=== PATIENT | female | born 1965 | race American Indian/Alaskan Native ===

== ENCOUNTER 2017-11-07 17:21 | Emergency (ER) | payer BC ==
[2017-11-07] MEDS ORDERED: NACL 0.9% 1000 ML 1,000 ML IV ONE (17:52)
--- NOTE | 2017-11-07 17:58 | Emergency Department Report ---
ED General Adult HPI - General Chief complaint: Dyspnea/Respdistress Stated complaint: FALL/HIP PAIN Time Seen by Provider: 11/07/17 17:50 Source: patient Mode of arrival: Wheelchair Limitations: Physical Limitation - History of Present Illness Initial comments: 52-year-old fell off the toilet and had a to extricated, here for eval hip pain , sob w/ hx of diarrhea after slip and fall and prolonged extrication after fall here morbidly obese with according to her increasing weight gain over the last month, here for eval fall, bilat hip pain, int. sob and cp, "i thik i have dm", and wt gain x one mo. patient denies black or bloody stool no fever no recent travel. Intermittent worsening shortness of breath intermittent chest pain with weight gain or 1 week to 1 month patient is not entirely sure. When she fell off the toilet she did not hit her head or neck but she is having mid to lower back pain and bilateral hip pain and pelvis pain she was unable to get up at the scene 911 was called there was prolonged extrication they did have to cut out half the bathroom. -: Sudden, hour(s), days(s), week(s) Location: back, abdomen, pelvis Radiation: non-radiation Quality: sharp Consistency: intermittent Worsens with: movement Associated Symptoms: chest pain, shortness of breath, weakness - Related Data Allergies Allergy/AdvReac Type Severity Reaction Status Date / Time No Known Allergies Allergy Unverified 11/07/17 17:34 ED Review of Systems ROS: Stated complaint: FALL/HIP PAIN Other details as noted in HPI Comment: All other systems reviewed and negative Constitutional: weakness. denies: diaphoresis, fever Eyes: denies: eye discharge ENT: denies: dental pain, hearing loss, epistaxis Respiratory: orthopnea, shortness of breath, SOB with exertion. denies: stridor Cardiovascular: chest pain, dyspnea on exertion, orthopnea, edema. denies: palpitations, syncope Gastrointestinal: diarrhea. denies: nausea, vomiting, constipation, hematemesis , melena, hematochezia Genitourinary: denies: urgency, dysuria, frequency, hematuria, discharge Musculoskeletal: arthralgia, myalgia Neurological: denies: headache, numbness, paresthesias, confusion, abnormal gait , vertigo Psychiatric: denies: auditory hallucinations, visual hallucinations, homicidal thoughts, suicidal thoughts Hematological/Lymphatic: denies: easy bruising, swollen glands ED Past Medical Hx - Past Medical History Previous Medical History?: Yes Hx Diabetes: Yes Hx Arthritis: Yes - Surgical History Past Surgical History?: No - Social History Smoking Status: Current Every Day Smoker Substance Use Type: Alcohol ED Physical Exam - General Limitations: Physical Limitation General appearance: alert, anxious - Head Head exam: Present: atraumatic, normocephalic - Eye Eye exam: Present: normal appearance, PERRL, EOMI - ENT ENT exam: Present: normal exam, normal orophraynx, other (no stridor no drooling no airway compromise) - Neck Neck exam: Present: normal inspection. Absent: tenderness, meningismus - Respiratory Respiratory exam: Present: rales, rhonchi. Absent: stridor, chest wall tenderness, accessory muscle use, prolonged expiratory - Cardiovascular Cardiovascular Exam: Present: tachycardia - GI/Abdominal GI/Abdominal exam: Present: tenderness. Absent: guarding, rebound, rigid, mass , bruit, pulsatile mass - Extremities Exam Extremities exam: Present: pedal edema, calf tenderness - Back Exam Back exam: Present: muscle spasm, paraspinal tenderness - Neurological Exam Neurological exam: Present: alert, oriented X3, CN II-XII intact. Absent: motor sensory deficit - Skin Skin exam: Absent: erythema, vesicles, petechiae, pallor, abrasion, ecchymosis ED Course Vital Signs 11/07/17 11/07/17 11/07/17 17:27 17:30 17:34 Temperature 98.0 F Pulse Rate 99 H 101 H Respiratory 14 18 Rate Blood Pressure 152/104 158/91 152/104 Blood Pressure 158/91 [Left] O2 Sat by Pulse 92 99 91 Oximetry 11/07/17 11/07/17 11/07/17 17:41 17:45 18:00 Temperature Pulse Rate 99 H 101 H Respiratory 14 15 14 Rate Blood Pressure 158/91 163/97 Blood Pressure [Left] O2 Sat by Pulse 99 94 94 Oximetry 11/07/17 11/07/17 11/07/17 18:15 18:30 19:22 Temperature Pulse Rate 99 H 103 H Respiratory 13 13 Rate Blood Pressure 163/97 178/108 178/108 Blood Pressure [Left] O2 Sat by Pulse 94 92 96 Oximetry 11/07/17 11/07/17 19:30 19:38 Temperature 98 F Pulse Rate Respiratory Rate Blood Pressure 193/109 Blood Pressure [Left] O2 Sat by Pulse 95 Oximetry - Reevaluation(s) Reevaluation #1: 11/07/17 20:33 Patient placed in room CT and plain films ordered patient was too large to complete the CT she was also large to get and lateral views ED Medical Decision Making - Lab Data Result diagrams: 11/07/17 17:51 11/07/17 17:51 - EKG Data Rate: tachycardia - EKG Data Interpretation: nonspecific ST-T wave abdi - Radiology Data Radiology results: pending - Medical Decision Making Given the nature of the symptoms patient did have complete workup ordered she did have an elevated BNP as well as an elevated d-dimer with normal troponin and nondiagnostic EKG. Given the prolonged extrication low back and abdominal pain and pelvic pain with elevated d-dimer and shortness of breath and chest pain patient will need CTA as well as clearance for trauma including spine and abdomen and pelvis. Given the weight constraints of the scanner at this facility and the concern for trauma as well as the chest pain shortness of breath and elevated d-dimer elevated BNP we did feel the higher level of care for discussed the case with [facility] and trauma service as well as further evaluation of chest pain shortness of breath. The [facility] facility is able to handle the patient and trauma service was made aware the patient and they will accept the transfer family is consenting to transfer.for further eval of c/o as above and dr paz has accepted at [facility] for higher level of care. Critical care attestation.: If time is entered above; I have spent that time in minutes in the direct care of this critically ill patient, excluding procedure time. ED Disposition Clinical Impression: Fall, Chest pain, Elevated d-dimer, Back pain, Pain in pelvis Disposition: DC/TX-70 ANOTHER TYPE HLTHCARE Is pt being admited?: No Condition: Stable Instructions: Chest Pain (ED) Time of Disposition: 20:39
[2017-11-07 18:04] LABS: Basophils % (Auto) 0.4 % (0.0-1.8); Eosinophils # (Auto) 0.1 K/mm3 (0.0-0.4); Eosinophils % (Auto) 1.9 % (0.0-4.3); Hematocrit 48.1 % (30.3-42.9); Hemoglobin 15.3 gm/dl (10.1-14.3); Lymphocytes # (Auto) 0.3 K/mm3 (1.2-5.4); Lymphocytes % (Auto) 4.4 % (13.4-35.0); Mean Corpuscular HGB Conc 32 % (30-34); Mean Corpuscular Hemoglobin 30 pg (28-32); Mean Corpuscular Volume 95 fl (79-97); Monocytes # (Auto) 0.4 K/mm3 (0.0-0.8); Monocytes % (Auto) 5.6 % (0.0-7.3); Platelet Count 281 K/mm3 (140-440); Red Blood Count 5.08 M/mm3 (3.65-5.03); Red Cell Distribution Width 15.8 % (13.2-15.2)
[2017-11-07 18:21] LABS: Calcium 8.1 mg/dL (8.4-10.2)
--- NOTE | 2017-11-07 20:25 | XRay Report ---
FINAL REPORT PROCEDURE: XR CHEST 1V AP TECHNIQUE: Chest radiograph anteroposterior view. CPT 75792 HISTORY: sob COMPARISON: No prior studies are available for comparison. FINDINGS: Heart: Cardiac size is upper limit of normal.. Mediastinum/Vessels: Normal. Lungs/Pleural space: An irregular patchy density is noted in the right lower lung. Left lung and bilateral pleural spaces are clear.. Bony thorax: No acute osseous abnormality. Life support devices: None. IMPRESSION: A patchy density in the right lower lung may represent atelectatic versus infiltrative changes. A two view chest study is recommended whenever the patient's condition permits..
[2017-11-07] MEDS ORDERED: NITROSTAT SL ONE (20:27)
[2017-11-07] MEDS ORDERED: NITRO-BID 2% TP ONE (20:27)
[2017-11-07] MEDS ORDERED: LASIX IV ONE (20:27)
--- NOTE | 2017-11-07 21:17 | XRay Report ---
FINAL REPORT PROCEDURE: XR PELVIS 1-2V TECHNIQUE: Pelvis radiograph, AP view. CPT 40186 HISTORY: fall COMPARISON: No prior studies are available for comparison. FINDINGS: An acute fracture is not identified. Mild degree osteophyte formation is noted involving left hip joint. Right hip joint is unremarkable. There are no radiopaque foreign bodies. IMPRESSION: No acute fracture.
--- NOTE | 2017-11-07 21:19 | XRay Report ---
FINAL REPORT PROCEDURE: XR SPINE 1V SPECIFY TECHNIQUE: A single AP view of lumbar spine was obtained HISTORY: fall; BACK PAIN COMPARISON: None FINDINGS: Vertebral alignment and height are within normal limits as visualized on this frontal view. Narrowing of intervertebral disc spaces noted at L4-5. Transitional vertebra is noted at the lumbosacral junction. Marginal osteophyte formation is noted involving the lumbar levels. IMPRESSION: No obvious acute fracture as visualized on this single view. Degenerative disc disease at L4-5.
--- NOTE | 2017-11-07 21:22 | XRay Report ---
FINAL REPORT PROCEDURE: XR SPINE 1V SPECIFY TECHNIQUE: A single AP view of thoracic spine was obtained. HISTORY: fall; BACK PAIN COMPARISON: No prior studies are available for comparison. FINDINGS: Vertebral height and alignment are within normal limits as visualized on this single frontal view. Marginal osteophyte formation is noted at multiple lower thoracic disc levels. There appears to be widening of the superior mediastinum. IMPRESSION: No obvious acute fracture as visualized on this single frontal view. Widening of the superior mediastinum is noted. CTA of the chest is recommended to rule out any aortic injury.
[2017-11-07] MEDS ORDERED: ZOFRAN IV ONE (21:47)
[2017-11-07] MEDS ORDERED: MORPHINE IV ONE (21:47)
[2017-11-08 01:42] VITALS: BP 147/91
== END 2017-11-08 01:44 | disposition other institution (70) ==
LOC: ED 17:21
DX: R07.89 Other chest pain (principal); M54.89 Other dorsalgia; R10.2 Pelvic and perineal pain; R79.1 Abnormal coagulation profile; E11.9 Type 2 diabetes mellitus without complications; M19.90 Unspecified osteoarthritis, unspecified site; F17.200 Nicotine dependence, unspecified, uncomplicated; W01.0XXA Fall on same level from slipping, tripping and stumbling without subsequent striking against object, initial encounter; Y93.89 Activity, other specified; Y92.89 Other specified places as the place of occurrence of the external cause; Y99.8 Other external cause status
CPT/HCPCS: 36415; 71045; 72020; 72170; 80048; 83880; 84484; 85025; 85379; 93005; 93010; 96361; 96374; 96375; 99285; J1940; J2270; J2405; J7030

== ENCOUNTER 2017-12-23 18:34 | Emergency (ER) | payer SELFPAY ==
--- NOTE | 2017-12-23 19:09 | Emergency Department Report ---
ED CPR HPI - General Stated Complaint: CARDIAC ARREST Time Seen by Provider: 12/23/17 19:05 - History of Present Illness Initial Comments: Since a 52 year old female that was found by paramedics with no signs of life. Paramedics and fortunately that the patient was very cyanotic and look like could potentially be a field pronouncement. However the stated that the patient was a live 15 minutes prior. Therefore paramedics initiated CPR and transfer report of the patient for further evaluation. On their initial arrival the patient was found in asystole. She did not respond to rounds of epinephrine. She remained in asystole throughout. She had approximately 25 minutes of resuscitation by the time of my encounter. She presented in asystole. Therefore further resuscitative efforts were deemed futile; she was pronounced DOA. Complaint: found unresponsive -: minute(s) Place: home Bystander CPR Performed: No Shock Advised: No Initial Findings in the Field: systole (asystole) ROSC in the Field: No - Related Data Allergies Allergy/AdvReac Type Severity Reaction Status Date / Time No Known Allergies Allergy Unverified 11/07/17 17:34 ED Review of Systems ROS: Stated complaint: CARDIAC ARREST Other details as noted in HPI Comment: Unobtainable due to pts medical conditions ED Past Medical Hx - Past Medical History Hx Diabetes: Yes Hx Arthritis: Yes - Social History Smoking Status: Current Every Day Smoker Substance Use Type: Alcohol ED Physical Exam - General General appearance: other (unresponsive and grossly cyanotic) - Head Head exam: Present: atraumatic, normocephalic - Eye Eye exam: Absent: scleral icterus - ENT ENT exam: Present: mucous membranes moist - Neck Neck exam: Present: normal inspection - Respiratory Respiratory exam: Present: decreased breath sounds (with Ambu bag assist) - Cardiovascular Cardiovascular Exam: Present: other (no heart sounds) - GI/Abdominal GI/Abdominal exam: Present: distended, other (morbidly obese) - Extremities Exam Extremities exam: Present: other (bilateral lymphedema) - Skin Skin exam: Present: rash ED Course - Reevaluation(s) Reevaluation #1: Patient was pronounced DOA. The was counseled. A [place] police officer was present interviewing the as well. I do not know why. 12/23/17 19:12 Critical care attestation.: If time is entered above; I have spent that time in minutes in the direct care of this critically ill patient, excluding procedure time. ED Disposition Clinical Impression: Cardiac arrest Disposition: DC-20 Is pt being admited?: No Does the pt Need Aspirin: No Condition: Stable Referrals: FOREIGN POSEY MD [Primary Care Provider] - 3-5 Days Time of Disposition: 19:14
[2017-12-23 20:23] VITALS: BP 0/0
[2017-12-23] MEDS ORDERED: ACTIVASE ONE (21:48)
== END 2017-12-24 01:10 ==
LOC: ED 18:34
DX: I46.9 Cardiac arrest, cause unspecified (principal); E11.9 Type 2 diabetes mellitus without complications; M19.90 Unspecified osteoarthritis, unspecified site; F17.200 Nicotine dependence, unspecified, uncomplicated
CPT/HCPCS: 92950; J2997